=== PATIENT | female | born 1955 | race Two or more races ===

== ENCOUNTER 2017-03-12 12:42 | Emergency (ER) | payer MEDICAID, OTHER ==
[~2017-03-12] VITALS: Ht 160 cm; Wt 72.6 kg
[2017-03-12] MEDS ORDERED: ACETAMINOPHEN 500 MG TAB PO ONE ×2 (14:01→14:30)
[2017-03-12 14:23] VITALS: BP 140/65
[2017-03-12] MEDS ORDERED: ALBUTEROL SULF 2.5 MG/0.5ML(0.5%) NEB SOLN NEB ONE (14:45)
[2017-03-12] MEDS ORDERED: IPRATROPIUM BROM 0.5 MG/2.5ML INH SOL NEB ONE (14:45)
[2017-03-12] MEDS ORDERED: IBUPROFEN 800 MG TAB PO ONE (15:00)
[2017-03-12] MEDS ORDERED: cefTRIAXone SOD 1,000 MG VL IM ONE (15:45)
[2017-03-12] MEDS ORDERED: methylPREDNISolone SOD SUCC 125 MG/2 ML VL IM ONE (15:45)
== END 2017-03-12 16:38 | disposition home or self-care (01) ==
LOC: ER 13:00
DX: J45.901 Unspecified asthma with (acute) exacerbation (principal); J03.90 Acute tonsillitis, unspecified
CPT/HCPCS: 71020; 94640; 96372; 99284; J0696; J2930